=== PATIENT | male | born 1950 | race Caucasian/White ===

== ENCOUNTER → 2018-01-23 | Outpatient (CLI) | payer MEDICARE, OTHER ==
--- NOTE | 2018-01-23 10:33 | Diagnostic Imaging Report ---
INDICATION: History of renal cell carcinoma COMPARISON: 08/15/2016 FINDINGS: Two views of the chest were obtained. Heart size is normal. The pulmonary vessels appear unremarkable. There is no pneumothorax, mediastinal widening or pleural fluid. Lungs are clear. There are mild degenerative changes in the spine. IMPRESSION: No acute abnormality is demonstrated. No interval change from the prior study. Dictated by: Dictated on workstation # [id number]
== END ==
LOC: RAD 09:22
PROVIDERS: ATTEND Family Medicine
DX: Z85.528 Personal history of other malignant neoplasm of kidney (principal)
CPT/HCPCS: 71046

== ENCOUNTER 2018-03-11 09:55 | Outpatient (RCR) | payer MEDICARE, OTHER ==
[2018-03-09] MEDS: VANCOMYCIN 1 GM/NS 250 ML IVPB IV SCH ×2 (11:35)
[2018-03-09 11:37] VITALS: BP 167/89
[2018-03-10] MEDS: VANCOMYCIN 1 GM/NS 250 ML IVPB IV SCH ×2 (11:12)
[2018-03-10 12:24] VITALS: BP_SYST 147; BP_SYST 167; BP_DIAS 87; BP_DIAS 89
[~2018-03-11] VITALS: Ht 182.9 cm; Wt 108.0 kg
[2018-03-11] MEDS: VANCOMYCIN 1 GM/NS 250 ML IVPB IV SCH ×2 (10:01)
[2018-03-11 10:05] VITALS: BP 163/88
[2018-03-11 11:13] VITALS: BP 163/88
== END 2018-06-07 | disposition home or self-care (01) ==
LOC: SDC 09:55
PROVIDERS: ATTEND Nurse Practitioner Family
DX: L03.116 Cellulitis of left lower limb (principal)
CPT/HCPCS: 96365

== ENCOUNTER → 2018-04-16 | Outpatient (CLI) | payer MEDICARE, OTHER | LOC: WOUNDCARE 09:02 | PROVIDERS: ATTEND Surgery | DX: E11.621 Type 2 diabetes mellitus with foot ulcer (principal); L97.422 Non-pressure chronic ulcer of left heel and midfoot with fat layer exposed | CPT/HCPCS: 11042; 87070; 87075; 87077; 87186; 87205 ==

== ENCOUNTER → 2018-12-18 | Outpatient (CLI) | payer MEDICARE, OTHER ==
--- NOTE | 2018-12-18 12:15 | Diagnostic Imaging Report ---
EXAMINATION: PA and lateral chest at 1050 hours. INDICATION: Renal cell carcinoma. FINDINGS: The heart size is within normal limits and stable when compared to 01/23/2018. The lungs are clear. There is no evidence for failure, pneumonia, or for a pleural effusion. There is no sign of a parenchymal lung mass either. The mediastinum is not widened. The osseous structures are intact. There is a mild compression deformity of one of the lowermost thoracic vertebra. The seems similar to the prior exam. As noted previously, there is a surgical screw overlying the left humeral head. Surgical clips are also seen in the left upper quadrant. IMPRESSION: There is no evidence for an acute cardiopulmonary abnormality. There is no sign of a mass lesion either. Dictated by: Dictated on workstation # [id number]
== END ==
LOC: RAD 10:06
PROVIDERS: ATTEND Family Medicine
DX: C64.9 Malignant neoplasm of unspecified kidney, except renal pelvis (principal); R05 Cough
CPT/HCPCS: 71046

== ENCOUNTER → 2019-01-18 | Outpatient (CLI) | payer MEDICARE, OTHER | LOC: CARD 10:24 | PROVIDERS: ATTEND Family Medicine | DX: I10 Essential (primary) hypertension (principal); I34.0 Nonrheumatic mitral (valve) insufficiency | CPT/HCPCS: 93306 ==

== ENCOUNTER → 2020-09-10 | Outpatient (CLI) | payer MEDICARE, OTHER ==
--- NOTE | 2020-09-10 08:34 | Diagnostic Imaging Report ---
INDICATION: Renal cell carcinoma. Time of exam 8:03 AM Correlation is made with prior chest from 12/14/2018. The heart size is stable. The pulmonary vascularity is unremarkable. No infiltrates are detected. There is no effusion or pneumothorax. No pulmonary nodules or masses are identified. IMPRESSION: Stable chest. No acute features detected. Dictated by: Dictated on workstation # [id number]
== END ==
LOC: RAD 07:38
PROVIDERS: ATTEND Internal Medicine
DX: C64.9 Malignant neoplasm of unspecified kidney, except renal pelvis (principal)
CPT/HCPCS: 71045

== ENCOUNTER 2021-11-05 15:18 | Observation (INO) | payer MEDICARE, OTHER ==
[~2021-11-05] VITALS: Ht 182 cm; Wt 110.3 kg
[2021-11-05 16:12] LABS: BASOPHILS # (AUTO) 0.1 10^3/uL (0.0-0.1); BASOPHILS % (AUTO) 1 % (0-10); EOSINOPHILS # (AUTO) 0.2 10^3/uL (0.0-0.3); EOSINOPHILS % (AUTO) 2 % (0-10); HEMATOCRIT 44 % (40-54); HEMOGLOBIN 14.3 g/dL (13.3-17.7); LYMPHOCYTES % (AUTO) 18 % (12-44); MEAN CORPUSCULAR HEMOGLOBIN 29 pg (25-34); MEAN CORPUSCULAR HGB CONC 33 g/dL (32-36); MEAN CORPUSCULAR VOLUME 88 fL (80-99); MEAN PLATELET VOLUME 10.9 fL (9.0-12.2); MONOCYTES # (AUTO) 0.8 10^3/uL (0.0-1.0); MONOCYTES % (AUTO) 8 % (0-12); NEUTROPHILS # (AUTO) 7.9 10^3/uL (1.8-7.8); NEUTROPHILS % (AUTO) 71 % (42-75); PLATELET COUNT 214 10^3/uL (130-400); WHITE BLOOD COUNT 11.1 10^3/uL (4.3-11.0)
--- NOTE | 2021-11-05 16:12 | ED Cardiac General ---
History of Present Illness General Chief Complaint: Chest Pain Stated Complaint: CHEST HEAVINESS/BELCHING Nursing Triage Note: ARRIVED VIA AMB WITH COMPLAINTS OF CHEST PAIN AND BELCHING X3 DAYS. Source: patient Exam Limitations: no limitations History of Present Illness Date Seen by Provider: Nov 05, 2021 Time Seen by Provider: 15:58 Initial Comments Patient is a 71-year-old male who presents to the emergency department today with a chief complaint of chest pressure and belching a lot over the last 2-3 days. Patient states that the pressure on his chest has been intermittent over the last couple of days not necessarily brought on by activity or exertion. He states that he took some Tums for it today. Just before he got to the emergency room it seemed to have abated quite a bit. At its worst about a "4" and currently about a "1". He denies any recent illnesses such as fevers, chills, URI symptoms, cough or congestion. No diaphoresis or shortness of breath with the chest pressure. He states it does not radiate. It sits right on his chest. 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 He states he had a cardiac evaluation "in the 90s" before shoulder surgery. His primary care physician is Dr. Chan. He has a history of hypertension, diabetes and is on a statin. He is also on a PPI. Never been a smoker. No swelling in his legs or cramping in his calves. All other review of systems reviewed and negative except as stated Timing/Duration: 2-3 days Severity: mild Location: substernal, central Activities at Onset: none Prior CP/Workup: no prior chest pain, no prior cardiac workup NTG SL WOOL CARDER: No ASA po WOOL CARDER: No Associated Systoms: Denies Symptoms Allergies and Home Medications Allergies Coded Allergies: sulfamethoxazole (Unverified Adverse Reaction, Unknown, 03/09/18) trimethoprim (Unverified Adverse Reaction, Unknown, 03/09/18) Patient Home Medication List Home Medication List Reviewed: Yes Aspirin (Aspirin EC) 81 Mg Tablet., 81 MG PO HS, (Reported) Entered as Reported by: HEATH HINTON on 11/05/211913 Last Action: Continued Atorvastatin Calcium (Lipitor) 20 Mg Tablet, 20 MG PO HS, (Reported) Entered as Reported by: HEATH HINTON on 11/05/211913 Last Action: Continued Carvedilol (Coreg) 6.25 Mg Tablet, 6.25 MG PO BID Prescribed by: TIARA DICKSON on 11/06/21 1250 Hydrochlorothiazide (Hydrochlorothiazide) 25 Mg Tablet, 25 MG PO DAILY, (Reported) Entered as Reported by: HEATH HINTON on 11/05/211913 Last Action: Continued Insulin Aspart (Novolog Flexpen) 300 Units/3 Ml Solution, 0 SQ AC, (Reported) Entered as Reported by: HEATH HINTON on 11/05/211913 Last Action: Held Insulin Detemir (Levemir Flextouch) 100 Unit/1 Ml Insuln.pen, 112 UNIT SQ HS, (Reported) Entered as Reported by: HEATH HINTON on 11/05/211913 Last Action: Converted Lisinopril (Lisinopril) 40 Mg Tablet, 40 MG PO DAILY, (Reported) Entered as Reported by: HEATH HINTON on 11/05/211902 Last Action: Continued Metformin HCl (Metformin HCl ER) 1,000 Mg Spvbuev33s, 1,000 MG PO DAILY, (Reported) Entered as Reported by: HEATH HINTON on 11/05/211913 Last Action: Held Pantoprazole Sodium (Protonix) 40 Mg Tablet.dr, 40 MG PO BID Prescribed by: MIN CHAN on 11/06/21 1223 Prazosin HCl (Prazosin HCl) 1 Mg Capsule, 1 MG PO HS, (Reported) Entered as Reported by: HEATH HINTON on 11/05/211913 Last Action: Converted Sucralfate (Carafate) 1 Gm Tablet, 1 GM PO ACHS Prescribed by: MIN CHAN on 11/06/21 1223 Discontinued Medications Carvedilol (Carvedilol) 25 Mg Tablet, 25 MG PO BID, (Reported) Entered as Reported by: HEATH HINTON on 11/05/211913 Last Action: Converted Omeprazole (Omeprazole) 20 Mg Capsule.dr, 20 MG PO HS, (Reported) Entered as Reported by: HEATH HINTON on 11/05/211913 Last Action: Continued Review of Systems Review of Systems Constitutional: see HPI Respiratory: No Symptoms Reported Cardiovascular: Chest Pain Gastrointestinal: Other ("Belching") Genitourinary: No Symptoms Reported Musculoskeletal: no symptoms reported Skin: no symptoms reported Psychiatric/Neurological: Anxiety (Mild) All Other Systems Reviewed Negative Unless Noted: Yes Past Hakigzb-Ropsim-Zyvdyu Hx Patient Social History Smoking Status: Never a Smoker Substance use?: No Alcohol Use?: No Immunizations Up To Date COVID19 Vaccine Soap Grinder: MODERNA Physical Exam Vital Signs Vital Signs - First Documented 11/05/21 15:30 Temp 36.3 Pulse 55 Resp 16 B/P (MAP) 188/82 (117) Pulse Ox 97 O2 Delivery Room Air Capillary Refill : Less Than 3 Seconds Height, Weight, BMI Height: 6'0.00" Weight: 238lbs. 0.0oz. 107.856965jc; 32.00 BMI Method: General Appearance: No Apparent Distress, WD/WN HEENT: PERRL/EOMI Neck: Normal Inspection Respiratory: Lungs Clear, Normal Breath Sounds, No Accessory Muscle Use, No Respiratory Distress Cardiovascular: Regular Rate, Rhythm (60's), Normal Peripheral Pulses Gastrointestinal: Normal Bowel Sounds, Non Tender, Soft Extremity: Normal Capillary Refill, Normal Inspection, Normal Range of Motion, Non Tender, No Calf Tenderness, No Pedal Edema Neurologic/Psychiatric: Alert, Oriented x3, No Motor/Sensory Deficits, Normal Mood/Affect, pharmacy clerk II-XII Norm as Tested Skin: Normal Color, Warm/Dry Progress/Results/Core Measures Results/Orders Lab Results Laboratory Tests Test 11/05/21 15:37 Range/Units White Blood Count 11.1 H 4.3-11.0 10^3/uL Red Blood Count 4.94 4.30-5.52 10^6/uL Hemoglobin 14.3 13.3-17.7 g/dL Hematocrit 44 40-54 % Mean Corpuscular Volume 88 80-99 fL Mean Corpuscular Hemoglobin 29 25-34 pg Mean Corpuscular Hemoglobin Concent 33 32-36 g/dL Red Cell Distribution Width 13.3 10.0-14.5 % Platelet Count 214 130-400 10^3/uL Mean Platelet Volume 10.9 9.0-12.2 fL Immature Granulocyte % (Auto) 1 % Neutrophils (%) (Auto) 71 42-75 % Lymphocytes (%) (Auto) 18 12-44 % Monocytes (%) (Auto) 8 0-12 % Eosinophils (%) (Auto) 2 0-10 % Basophils (%) (Auto) 1 0-10 % Neutrophils # (Auto) 7.9 H 1.8-7.8 10^3/uL Lymphocytes # (Auto) 2.0 1.0-4.0 10^3/uL Monocytes # (Auto) 0.8 0.0-1.0 10^3/uL Eosinophils # (Auto) 0.2 0.0-0.3 10^3/uL Basophils # (Auto) 0.1 0.0-0.1 10^3/uL Immature Granulocyte # (Auto) 0.1 0.0-0.1 10^3/uL Prothrombin Time 13.0 12.2-14.7 SEC INR Comment 0.9 0.8-1.4 Activated Partial Thromboplast Time 34 24-35 SEC Sodium Level 136 135-145 MMOL/L Potassium Level 3.7 3.6-5.0 MMOL/L Chloride Level 102 98-107 MMOL/L Carbon Dioxide Level 27 21-32 MMOL/L Anion Gap 7 5-14 MMOL/L Blood Urea Nitrogen 17 7-18 MG/DL Creatinine 0.97 0.60-1.30 MG/DL Estimat Glomerular Filtration Rate 77 BUN/Creatinine Ratio 18 Glucose Level 204 H 70-105 MG/DL Calcium Level 10.1 8.5-10.1 MG/DL Corrected Calcium 10.1 8.5-10.1 MG/DL Total Bilirubin 0.6 0.1-1.0 MG/DL Aspartate Amino Transf (AST/SGOT) 20 5-34 U/L Alanine Aminotransferase (ALT/SGPT) 30 0-55 U/L Alkaline Phosphatase 77 40-136 U/L Total Creatine Kinase 176 30-200 U/L Creatine Kinase MB 4.7 <6.6 NG/ML Troponin I < 0.028 <0.028 NG/ML Total Protein 7.1 6.4-8.2 GM/DL Albumin 4.0 3.2-4.5 GM/DL My Orders Orders - TAHMINA ARNOLD MD Ed Iv/Invasive Line Start (11/05/21 16:06) Cbc With Automated Diff (11/05/21 16:06) Comprehensive Metabolic Panel (11/05/21 16:06) Protime With Inr (11/05/21 16:06) Partial Thromboplastin Time (11/05/21 16:06) Ekg Tracing (11/05/21 16:06) Chest 1 View, Ap/Pa Only (11/05/21 16:06) Troponin I [place] (11/05/21 16:06) Creatine Kinase (11/05/21 16:06) Creatine Kinase Mb (11/05/21 16:06) Aspirin Chewable Tablet (Baby Aspirin Ch (11/06/21 09:00) Aspirin Chewable Tablet (Baby Aspirin Ch (11/05/21 16:26) Ed Admission (Communication) (11/05/21 17:21) Enoxaparin Injection (Lovenox Injection) (11/05/21 17:30) Vital Signs/I&O 11/05/21 15:30 Temp 36.3 Pulse 55 Resp 16 B/P (MAP) 188/82 (117) Pulse Ox 97 O2 Delivery Room Air Blood Pressure Mean: 117 Admisison Planning May Need Admission (Planning): 17:20 Progress Progress Note : Time: 17:20 Progress Note Discussed with Dr. CHAN, recommends observation admission with serial cardiac enzymes and consultation with Dr. Dickson. Dr. Dickson request Lovenox weight-based twice daily and baby aspirin daily. Initial ECG Impression Date: Nov 05, 2021 Initial ECG Impression Time: 15:40 Initial ECG Rate: 54 Initial ECG Rhythm: Normal Sinus Initial ECG Intervals SD interval 155 QRS 109 QTc 388 Initial ECG Impression: Nonspecific Changes Comment Patient has nonspecific ST-T wave changes over V5 and V6 there is quite a bit of artifact on the baseline. No ST elevation or depression, no ectopy Diagnostic Imaging Diagonstic Imaging: Xray Plain Films/CT/US/NM/MRI: chest Comments [facility] [place], [place] NAME: CLOTILDE GUTIÉRREZ [facility] REC#: [id number] PT STATUS: REG ER : 1950 PHYSICIAN: TAHMINA ARNOLD MD ADMIT DATE: 11/05/21/ER Signed Date of Exam:11/05/21 CHEST 1 VIEW, AP/PA ONLY INDICATION: Chest pressure/pain and vomiting x3 days. History of renal cell carcinoma. TECHNIQUE: Single view chest 4:25 PM. CORRELATION STUDY: 09/10/2020 FINDINGS: Heart size is borderline enlarged. Vasculature overall is within normal limits. The lungs are clear with no consolidating infiltrate. There is no significant effusion or pneumothorax. IMPRESSION: 1. Borderline cardiac enlargement. No evidence for failure. Dictated by: Dictated on workstation # [id number] Dict: 11/05/21 1643 Trans: 11/05/21 164 DO [id number] Interpreted by: NADEGE SIMMONS DO Electronically signed by: NADEGE SIMMONS DO 11/05/21 1645 Departure Communication (Admissions) Time/Spoke to Admitting Phy: 17:[address] Chan wants admitted obs Time/Spoke to Consulting Phy: 17:[address] Dickson; aspirin and lovenox Impression Primary Impression: Chest pain Qualified Codes: R07.9 - Chest pain, unspecified Additional Impressions: Diabetes mellitus Qualified Codes: E11.9 - Type 2 diabetes mellitus without complications; 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 Referrals: MIN CHAN DO (PCP/Family) Primary Care Physician Scripts Carvedilol (Coreg) 6.25 Mg Tablet 6.25 MG PO BID, #60 TAB 3 Refills Prov: TIARA DICKSON MD 11/06/21 Sucralfate (Carafate) 1 Gm Tablet 1 GM PO ACHS, #120 TAB Prov: MIN CHAN DO 11/06/21 Pantoprazole Sodium (Protonix) 40 Mg Tablet. 40 MG PO BID, #60 TAB Prov: MIN CHAN DO 11/06/21 TAHMINA ARNOLD MD Nov 05, 2021 16:12
[2021-11-05 16:24] LABS: CHLORIDE 102 MMOL/L (98-107); INR 0.9 (0.8-1.4); POTASSIUM 3.7 MMOL/L (3.6-5.0); SODIUM 136 MMOL/L (135-145)
[2021-11-05 16:25] LABS: CALCIUM 10.1 MG/DL (8.5-10.1)
[2021-11-05] MEDS ORDERED: ASPIRIN 81 MG CHEW (CHILDREN'S ASA) ONE (16:26)
[2021-11-05 16:27] LABS: GLUCOSE 204 MG/DL (70-105); TOTAL PROTEIN 7.1 GM/DL (6.4-8.2)
[2021-11-05 16:28] LABS: BILIRUBIN,TOTAL 0.6 MG/DL (0.1-1.0); CARBON DIOXIDE 27 MMOL/L (21-32)
[2021-11-05 16:30] LABS: ALKALINE PHOSPHATASE 77 U/L (40-136); CREATININE SERUM 0.97 MG/DL (0.60-1.30); GFR ESTIMATED 77
[2021-11-05 16:31] LABS: BUN/CREATININE RATIO 18
[2021-11-05 16:33] LABS: ALANINE AMINOTRANSFERASE 30 U/L (0-55); CREATINE KINASE 176 U/L (30-200)
[2021-11-05 16:39] LABS: CREATINE KINASE MB 4.7 NG/ML (<6.6)
--- NOTE | 2021-11-05 16:46 | Diagnostic Imaging Report ---
INDICATION: Chest pressure/pain and vomiting x3 days. History of renal cell carcinoma. TECHNIQUE: Single view chest 4:25 PM. CORRELATION STUDY: 09/10/2020 FINDINGS: Heart size is borderline enlarged. Vasculature overall is within normal limits. The lungs are clear with no consolidating infiltrate. There is no significant effusion or pneumothorax. IMPRESSION: 1. Borderline cardiac enlargement. No evidence for failure. Dictated by: Dictated on workstation # [id number]
[2021-11-05] MEDS ORDERED: ENOXAPARIN 100 MG/1 ML (LOVENOX) SYR SC ONE (17:30)
[2021-11-05] MEDS ORDERED: ACETAMINOPHEN 325 MG TABLET PO PRN (18:15)
[2021-11-05] MEDS ORDERED: morphine INJ 4 MG/ML 1 ML (VIAL/SYRINGE) IV PRN (18:15)
[2021-11-05] MEDS ORDERED: ONDANSETRON 4 MG/2 ML (SDV) Z0FRAN IV PRN (18:15)
[2021-11-05] MEDS ORDERED: diphenhydrAMINE 25 MG TAB (BENADRYL) PO PRN (18:15)
[2021-11-05] MEDS ORDERED: NITROGLYCERIN 0.4 MG SL TABS BTL 25'S SL PRN (18:15)
[2021-11-05] MEDS ORDERED: diphenhydrAMINE 50 MG/ML INJ (BENADRYL) IVP PRN (18:15)
[2021-11-05] MEDS ORDERED: MELATONIN 3 MG TABLET PO PRN (18:15)
[2021-11-05] MEDS ORDERED: NALOXONE 0.4 MG/ML 1 ML (NARCAN) VIAL IV PRN (18:15)
[2021-11-05] MEDS ORDERED: ONDANSETRON 4 MG (ZOFRAN) ORAL DISSOLVE TAB PO PRN (18:15)
[2021-11-05] MEDS ORDERED: CALCIUM CARBONATE 500 MG (TUMS) TAB.CHEW PO PRN (18:15)
[2021-11-05] MEDS ORDERED: PATIENT MAY USE OWN MEDS, ALL PO SCH (18:15)
[2021-11-05] MEDS ORDERED: ANTACID SUSP 30 ML UDC (MYLANTA) PO PRN (18:15)
[2021-11-05] MEDS ORDERED: polyethylene glycoL POWDER 17 GM (MIRALAX) PACK PO PRN (18:15)
[2021-11-05] MEDS ORDERED: MILK OF MAGNESIA 400 MG/5 ML 30 ML UDC PO PRN (18:15)
[2021-11-05] MEDS ORDERED: BISACODYL 10 MG SUPP (DULCOLAX) PR PRN (18:15)
[2021-11-05] MEDS ORDERED: LACTULOSE SYRUP 10GM/15ML (ENULOSE) 30ML UDC PO PRN (18:15)
[2021-11-05] MEDS ORDERED: LISI40TA9 PO (19:03)
[2021-11-05] MEDS ORDERED: ATOR20TA49 PO (19:14)
[2021-11-05] MEDS ORDERED: INSU100I14 SQ (19:14)
[2021-11-05] MEDS ORDERED: ASPI-1238 PO (19:14)
[2021-11-05] MEDS ORDERED: CARV25TA PO (19:14)
[2021-11-05] MEDS ORDERED: METF-846 PO (19:14)
[2021-11-05] MEDS ORDERED: OMEP20CA18 PO (19:14)
[2021-11-05] MEDS ORDERED: HYDR25TA4 PO (19:14)
[2021-11-05] MEDS ORDERED: INSU100I29 SQ (19:14)
[2021-11-05] MEDS ORDERED: PRAZ1CAP2 PO (19:14)
[2021-11-05 19:24] VITALS: BP 192/92
[2021-11-05 19:35] VITALS: BP 188/82
[2021-11-05] MEDS ORDERED: NITROGLYCERIN 2% OINT 1 GM UNIT DOSE PACKET TOP PRN (20:00)
[2021-11-05] MEDS ORDERED: hydrALAZINE (APRESOLINE) 25 MG TAB PO PRN (20:00)
[2021-11-05] MEDS ORDERED: ASPIRIN E.C. 81 MG (ECOTRIN) TAB PO SCH (21:00)
[2021-11-05] MEDS ORDERED: amLODIPine 5 MG (NORVASC) TAB PO ONE (21:15)
[2021-11-05] MEDS ORDERED: PANTOPRAZOLE 20 MG TABLET (PROTONIX) PO SCH (21:30)
[2021-11-05] MEDS: DOCUSATE SODIUM 100 MG (COLACE) CAP PO SCH (22:00)
[2021-11-05] MEDS: inSUlin ASPART (NovoLOG) 1 UNIT/0.01 ML (CHARGE PER UNIT) SC SCH (22:01)
[2021-11-05] MEDS: SENNOSIDES 8.6 MG (SENOKOT) TAB PO SCH (22:01)
[2021-11-06] VITALS: BP 145/80
[2021-11-06 03:34] VITALS: BP 143/80
[2021-11-06] MEDS ORDERED: ENOXAPARIN 100 MG/1 ML (LOVENOX) SYR SC SCH (06:00)
[2021-11-06 06:16] LABS: BASOPHILS # (AUTO) 0.1 10^3/uL (0.0-0.1); BASOPHILS % (AUTO) 1 % (0-10); EOSINOPHILS # (AUTO) 0.3 10^3/uL (0.0-0.3); EOSINOPHILS % (AUTO) 3 % (0-10); HEMATOCRIT 43 % (40-54); HEMOGLOBIN 13.9 g/dL (13.3-17.7); LYMPHOCYTES # (AUTO) 1.9 10^3/uL (1.0-4.0); LYMPHOCYTES % (AUTO) 23 % (12-44); MEAN CORPUSCULAR HEMOGLOBIN 29 pg (25-34); MEAN CORPUSCULAR HGB CONC 32 g/dL (32-36); MEAN CORPUSCULAR VOLUME 89 fL (80-99); MONOCYTES # (AUTO) 0.8 10^3/uL (0.0-1.0); MONOCYTES % (AUTO) 9 % (0-12); NEUTROPHILS # (AUTO) 5.4 10^3/uL (1.8-7.8); NEUTROPHILS % (AUTO) 64 % (42-75); PLATELET COUNT 190 10^3/uL (130-400); WHITE BLOOD COUNT 8.4 10^3/uL (4.3-11.0)
[2021-11-06] MEDS: inSUlin ASPART (NovoLOG) 1 UNIT/0.01 ML (CHARGE PER UNIT) SC SCH ×2 (06:33→10:04)
[2021-11-06 06:59] LABS: TRIGLYCERIDES 148 MG/DL (<150); VLDL CHOLESTEROL 30 MG/DL (5-40)
[2021-11-06 07:04] LABS: CHOLESTEROL 134 MG/DL (< 200)
[2021-11-06 07:05] LABS: HDL CHOLESTEROL 35 MG/DL (40-60)
[2021-11-06 07:31] VITALS: BP 167/85
[2021-11-06 07:49] LABS: ALBUMIN 3.8 GM/DL (3.2-4.5); BILIRUBIN,TOTAL 0.4 MG/DL (0.1-1.0); CALCIUM 9.5 MG/DL (8.5-10.1); CREATININE SERUM 1.03 MG/DL (0.60-1.30); POTASSIUM 3.5 MMOL/L (3.6-5.0); TOTAL PROTEIN 6.6 GM/DL (6.4-8.2)
[2021-11-06] MEDS ORDERED: lisINopril 40 MG (PRINIVIL) TABLET PO SCH (09:00)
[2021-11-06] MEDS ORDERED: ASPIRIN 81 MG CHEW (CHILDREN'S ASA) PO SCH (09:00)
[2021-11-06] MEDS ORDERED: ASPIRIN E.C. 81 MG (ECOTRIN) TAB PO SCH (09:00)
[2021-11-06] MEDS: SENNOSIDES 8.6 MG (SENOKOT) TAB PO SCH (09:29)
[2021-11-06] MEDS: DOCUSATE SODIUM 100 MG (COLACE) CAP PO SCH (09:29)
--- NOTE | 2021-11-06 09:36 | History & Physical ---
History of Present Illness HPI/Chief Complaint Chief complaint: Chest pressure with belching History of present illness: This is a 71-year-old white male clinic patient of [employer] who has a past medical history of diabetes insulin-dependent managed by endocrinology, hypertension, hyperlipidemia who presents to the ER with chest pressure and belching. He does take omeprazole. Troponins have all been negative. Patient hasn't had a cardiac work-up for a long time. Dr. Dickson consulted. Echocardiogram completed. Outpatient stress test will be planned. Dr. DAO consulted due to suspicion for GERD versus gallbladder disease. Ultrasound of the abdomen will be ordered as outpatient. Source: patient, family Exam Limitations: no limitations Date Seen 11/06/21 Time Seen by a Provider: 12:00 Attending Physician Darline Wolfe DO PCP Darline Wolfe DO Referring Physician Date of Admission Nov 05, 2021 at 17:24 Home Medications & Allergies Home Medications Reviewed patient Home Medication Reconciliation performed by pharmacy medication reconciliations sheet metal technician and/or nursing. Patients Allergies have been reviewed. Allergies Allergies Coded Allergies sulfamethoxazole (Unverified Adverse Reaction, Unknown, 03/09/18) trimethoprim (Unverified Adverse Reaction, Unknown, 03/09/18) Past Qppqbkg-Vemsrq-Wzureq Hx Past Med/Social Hx: Reviewed Nursing Past Med/Soc Hx, Reviewed and Corrections made Patient Social History Marrital Status: Employed/Student: retired Alcohol Use: Denies Use Smoking Status: Never a Smoker Recent Foreign Travel: No Contact w/other who traveled: No Immunizations Up To Date Date of Influenza Vaccine: Aug 05, 2021 Past Medical History Cardiac: High Cholesterol, Hypertension Gastrointestinal: Gastroesophageal Reflux Endocrine: Diabetes, Insulin dep Review of Systems Constitutional: see HPI EENTM: no symptoms reported Respiratory: dyspnea on exertion Cardiovascular: chest pain Gastrointestinal: no symptoms reported Genitourinary: no symptoms reported Musculoskeletal: no symptoms reported Skin: no symptoms reported Psychiatric/Neurological: No Symptoms Reported All Other Systems Reviewed Negative Unless Noted: Yes Physical Exam Physical Exam Vital Signs Vital Signs - First Documented 11/05/21 11/05/21 15:30 19:35 Temp 36.3 Pulse 55 Resp 16 B/P (MAP) 188/82 (117) Pulse Ox 97 O2 Delivery Room Air FiO2 21 Capillary Refill : Less Than 3 Seconds Height, Weight, BMI Height: 6'0.00" Weight: 238lbs. 0.0oz. 107.925237xs; 32.30 BMI Method: General Appearance: No Apparent Distress, WD/WN, Chronically ill, Obese HEENT: PERRL/EOMI, Normal ENT Inspection, Pharynx Normal Neck: Full Range of Motion, Normal Inspection Respiratory: Lungs Clear, Normal Breath Sounds, No Accessory Muscle Use, No Respiratory Distress Cardiovascular: Regular Rate, Rhythm (60's), Normal Peripheral Pulses Gastrointestinal: Normal Bowel Sounds, Non Tender, Soft Extremity: Normal Capillary Refill, Normal Inspection, Normal Range of Motion, Non Tender, No Calf Tenderness, No Pedal Edema Neurologic/Psychiatric: Alert, Oriented x3, No Motor/Sensory Deficits, Normal Mood/Affect, e learning manager II-XII Norm as Tested Skin: Normal Color, Warm/Dry Results Results/Procedures Labs Laboratory Tests 11/05/21 15:37 11/06/21 00:24 11/06/21 05:33 Patient resulted labs reviewed. Assessment/Plan Admission Diagnosis Assessment: Chest pain Belching History of GERD Diabetes mellitus insulin requiring endocrinology manages Hypertension Hyperlipidemia Obesity BMI 33 Plan: Dr. Dickson consult Echo Stress test as an outpatient Ultrasound of abdomen as an outpatient PPI twice daily and [place] DAO consult in case needs EGD Admission Status: Observation Diagnosis/Problems Diagnosis/Problems (1) Chest pain Qualifiers: Chest pain type: unspecified Qualified Codes: R07.9 - Chest pain, unspecified (2) Gall bladder disease (3) Hypertension Status: Acute Qualifiers: Hypertension type: primary hypertension Qualified Codes: I10 - Essential (primary) hypertension (4) Diabetes mellitus Status: Acute Qualifiers: Diabetes mellitus type: type 2 Diabetes mellitus half-way insulin use: with half-way use Diabetes mellitus complication status: without complication Qualified Codes: E11.9 - Type 2 diabetes mellitus without complications; 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
[2021-11-06 11:19] VITALS: BP 173/87
[2021-11-06] MEDS ORDERED: SUCR1TAB36 PO (12:23)
[2021-11-06] MEDS ORDERED: PANT40TA2 PO (12:23)
--- NOTE | 2021-11-06 12:48 | Consultation-Cardiology ---
HPI-Cardiology Cardiology Consultation Date of Consultation 11/06/21 Date of Admission Time Seen by Provider: 12:45 Indication: Chest pain HPI 71 years old gentleman with multiple risk factors for coronary artery disease but no known previous cardiac history, has been having recurrent chest pain on exertion feeling heaviness in his chest with exertion reporting that he improve after belching. Came into the emergency room and monitored, cardiac enzymes has been negative, EKG did not show any acute changes, denied any active chest pain at this time. Home Medications & Allergies Allergies: Coded Allergies: sulfamethoxazole (Unverified Adverse Reaction, Unknown, 03/09/18) trimethoprim (Unverified Adverse Reaction, Unknown, 03/09/18) Home Medication List Reviewed: Yes GCM-Sgkizt-Uvfbyx Hx Patient Social History Marital Status: Employed/Student: retired Smoking Status: Never a Smoker Have you traveled recently?: No Alcohol Use?: No Immunizations Up To Date Date of Influenza Vaccine: Aug 05, 2021 Past Medical History Discussed below Family Medical History Family Medical Hx Mother has history of coronary artery disease Review of Systems-General Review of Systems Constitutional: see HPI EENTM: see HPI, no symptoms reported Respiratory: see HPI; No cough; dyspnea on exertion; No hemoptysis, No orthopnea, No phlegm, No short of breath, No stridor, No wheezing, No other Cardiovascular: see HPI, chest pain; No edema, No Hx of Intervention, No palpitations, No syncope, No vascular heart diseas, No other Gastrointestinal: no symptoms reported, see HPI Genitourinary: no symptoms reported, see HPI Musculoskeletal: no symptoms reported Skin: no symptoms reported Psychiatric/Neurological: Anxiety (Mild) All Other Systems Reviewed Negative Unless Noted: Yes Reviewed Test Results Reviewed Test Results Lab Laboratory Tests Test 11/05/21 15:37 11/05/21 19:43 11/06/21 00:24 11/06/21 05:33 Range/Units White Blood Count 11.1 H 8.4 4.3-11.0 10^3/uL Red Blood Count 4.94 4.86 4.30-5.52 10^6/uL Hemoglobin 14.3 13.9 13.3-17.7 g/dL Hematocrit 44 43 40-54 % Mean Corpuscular Volume 88 89 80-99 fL Mean Corpuscular Hemoglobin 29 29 25-34 pg Mean Corpuscular Hemoglobin Concent 33 32 32-36 g/dL Red Cell Distribution Width 13.3 13.5 10.0-14.5 % Platelet Count 214 190 130-400 10^3/uL Mean Platelet Volume 10.9 11.0 9.0-12.2 fL Immature Granulocyte % (Auto) 1 1 % Neutrophils (%) (Auto) 71 64 42-75 % Lymphocytes (%) (Auto) 18 23 12-44 % Monocytes (%) (Auto) 8 9 0-12 % Eosinophils (%) (Auto) 2 3 0-10 % Basophils (%) (Auto) 1 1 0-10 % Neutrophils # (Auto) 7.9 H 5.4 1.8-7.8 10^3/uL Lymphocytes # (Auto) 2.0 1.9 1.0-4.0 10^3/uL Monocytes # (Auto) 0.8 0.8 0.0-1.0 10^3/uL Eosinophils # (Auto) 0.2 0.3 0.0-0.3 10^3/uL Basophils # (Auto) 0.1 0.1 0.0-0.1 10^3/uL Immature Granulocyte # (Auto) 0.1 0.1 0.0-0.1 10^3/uL Prothrombin Time 13.0 12.2-14.7 SEC INR Comment 0.9 0.8-1.4 Activated Partial Thromboplast Time 34 24-35 SEC Sodium Level 136 138 135-145 MMOL/L Potassium Level 3.7 3.5 L 3.6-5.0 MMOL/L Chloride Level 102 103 98-107 MMOL/L Carbon Dioxide Level 27 19 L 21-32 MMOL/L Anion Gap 7 16 H 5-14 MMOL/L Blood Urea Nitrogen 17 18 7-18 MG/DL Creatinine 0.97 1.03 0.60-1.30 MG/DL Estimat Glomerular Filtration Rate 77 71 BUN/Creatinine Ratio 18 17 Glucose Level 204 H 171 H 70-105 MG/DL Calcium Level 10.1 9.5 8.5-10.1 MG/DL Corrected Calcium 10.1 9.7 8.5-10.1 MG/DL Total Bilirubin 0.6 0.4 0.1-1.0 MG/DL Aspartate Amino Transf (AST/SGOT) 20 22 5-34 U/L Alanine Aminotransferase (ALT/SGPT) 30 30 0-55 U/L Alkaline Phosphatase 77 76 40-136 U/L Total Creatine Kinase 176 30-200 U/L Creatine Kinase MB 4.7 <6.6 NG/ML Troponin I < 0.028 < 0.028 < 0.028 <0.028 NG/ML Total Protein 7.1 6.6 6.4-8.2 GM/DL Albumin 4.0 3.8 3.2-4.5 GM/DL Glucometer 129 H 70-110 MG/DL Triglycerides Level 148 <150 MG/DL Cholesterol Level 134 < 200 MG/DL LDL Cholesterol Direct 80 1-129 MG/DL VLDL Cholesterol 30 5-40 MG/DL HDL Cholesterol 35 L 40-60 MG/DL Test 11/06/21 06:31 11/06/21 10:00 11/06/21 11:05 Range/Units Glucometer 95 83 70-110 MG/DL Troponin I < 0.028 <0.028 NG/ML Physical Exam Physical Exam Vital Signs Vital Signs - First Documented 11/05/21 11/05/21 15:30 19:35 Temp 36.3 Pulse 55 Resp 16 B/P (MAP) 188/82 (117) Pulse Ox 97 O2 Delivery Room Air FiO2 21 Capillary Refill : Less Than 3 Seconds Height, Weight, BMI Height: 6'0.00" Weight: 238lbs. 0.0oz. 107.055783hl; 32.30 BMI Method: General Appearance: No Apparent Distress, WD/WN HEENT: PERRL/EOMI Neck: Normal Inspection Respiratory: Lungs Clear, Normal Breath Sounds, No Accessory Muscle Use, No Respiratory Distress Cardiovascular: Regular Rate, Rhythm (60's), Normal Peripheral Pulses Gastrointestinal: Normal Bowel Sounds, Non Tender, Soft Extremity: Normal Capillary Refill, Normal Inspection, Normal Range of Motion, Non Tender, No Calf Tenderness, No Pedal Edema Neurologic/Psychiatric: Alert, Oriented x3, No Motor/Sensory Deficits, Normal Mood/Affect, managing manager II-XII Norm as Tested Skin: Normal Color, Warm/Dry A/P-Cardiology Admission Diagnosis Chest pain Hypertension Hyperlipidemia Diabetes mellitus Sinus bradycardia Assessment/Plan Chest pain nonspecific etiology, atypical in presentation, patient has multiple risk factors for coronary artery disease, we discussed the management plan recommended evaluating stress test as an outpatient. Hypertension, I will decrease carvedilol dose to 6.25 mg twice daily due to severe bradycardia Bradycardia, heart rate in the 40s. I instructed him to cut down Coreg dose and monitor tolerance and response and continue all other medication Hyperlipidemia, continue on statin and monitor lipids Diabetes mellitus, followed and managed by primary care physician Obesity, BMI 33. Okay for discharge and follow-up as an outpatient Clinical Quality Measures AMI/AHF: ASA po Prior to arrival: TIARA Ernst MD Nov 06, 2021 12:48
[2021-11-06] MEDS ORDERED: CARV6.25 PO (12:50)
--- NOTE | 2021-11-06 12:57 | Discharge Summary ---
Diagnosis/Chief Complaint Date of Admission Nov 05, 2021 at 17:24 Date of Discharge Discharge Date: Nov 06, 2021 Discharge Diagnosis Chest pain w/o evidence of ACS Belching suspicious for GERD and/or GB disease Discharge Summary Discharge Physical Examination Allergies: Coded Allergies: sulfamethoxazole (Unverified Adverse Reaction, Unknown, 03/09/18) trimethoprim (Unverified Adverse Reaction, Unknown, 03/09/18) Vitals & I&Os Vital Signs Date Time Temp Pulse Resp B/P (MAP) Pulse Ox O2 Delivery O2 Flow Rate FiO2 11/06/21 14:54 35.4 67 19 173/87 96 Room Air 11/05/21 19:35 21 Hospital Course Was the Problem List Reviewed?: Yes Brief course after admitted and troponin negative prompting Dr Dickson consult ECHO completed and Dr Thompson consulted for EGD outpatient and abd usg outpatient and est outpatient arranged Labs (last 24 hrs) Laboratory Tests 11/05/21 15:37: White Blood Count 11.1H, Red Blood Count 4.94, Hemoglobin 14.3, Hematocrit 44, Mean Corpuscular Volume 88, Mean Corpuscular Hemoglobin 29, Mean Corpuscular Hemoglobin Concent 33, Red Cell Distribution Width 13.3, Platelet Count 214, Mean Platelet Volume 10.9, Immature Granulocyte % (Auto) 1, Neutrophils (%) (Auto) 71, Lymphocytes (%) (Auto) 18, Monocytes (%) (Auto) 8, Eosinophils (%) (Auto) 2, Basophils (%) (Auto) 1, Neutrophils # (Auto) 7.9H, Lymphocytes # (Auto) 2.0, Monocytes # (Auto) 0.8, Eosinophils # (Auto) 0.2, Basophils # (Auto) 0.1, Immature Granulocyte # (Auto) 0.1, Prothrombin Time 13.0, INR Comment 0.9, Activated Partial Thromboplast Time 34, Sodium Level 136, Potassium Level 3.7, Chloride Level 102, Carbon Dioxide Level 27, Anion Gap 7, Blood Urea Nitrogen 17, Creatinine 0.97, Estimat Glomerular Filtration Rate 77, BUN/Creatinine Ratio 18, Glucose Level 204H, Calcium Level 10.1, Corrected Calcium 10.1, Total Bilirubin 0.6, Aspartate Amino Transf (AST/SGOT) 20, Alanine Aminotransferase (ALT/SGPT) 30, Alkaline Phosphatase 77, Total Creatine Kinase 176, Creatine Kinase MB 4.7, Troponin I < 0.028, Total Protein 7.1, Albumin 4.0 11/05/21 19:43: Glucometer 129H 11/06/21 00:24: Sodium Level 138, Potassium Level 3.5L, Chloride Level 103, Carbon Dioxide Level 19L, Anion Gap 16H, Blood Urea Nitrogen 18, Creatinine 1.03, Estimat Glomerular Filtration Rate 71, BUN/Creatinine Ratio 17, Glucose Level 171H, Calcium Level 9.5, Corrected Calcium 9.7, Total Bilirubin 0.4, Aspartate Amino Transf (AST/SGOT) 22, Alanine Aminotransferase (ALT/SGPT) 30, Alkaline Phosphatase 76, Troponin I < 0.028, Total Protein 6.6, Albumin 3.8 11/06/21 05:33: White Blood Count 8.4, Red Blood Count 4.86, Hemoglobin 13.9, Hematocrit 43, Mean Corpuscular Volume 89, Mean Corpuscular Hemoglobin 29, Mean Corpuscular Hemoglobin Concent 32, Red Cell Distribution Width 13.5, Platelet Count 190, Mean Platelet Volume 11.0, Immature Granulocyte % (Auto) 1, Neutrophils (%) (Auto) 64, Lymphocytes (%) (Auto) 23, Monocytes (%) (Auto) 9, Eosinophils (%) (Auto) 3, Basophils (%) (Auto) 1, Neutrophils # (Auto) 5.4, Lymphocytes # (Auto) 1.9, Monocytes # (Auto) 0.8, Eosinophils # (Auto) 0.3, Basophils # (Auto) 0.1, Immature Granulocyte # (Auto) 0.1, Troponin I < 0.028, Triglycerides Level 148, Cholesterol Level 134, LDL Cholesterol Direct 80, VLDL Cholesterol 30, HDL Cholesterol 35L 11/06/21 06:31: Glucometer 95 11/06/21 10:00: Glucometer 83 11/06/21 11:05: Troponin I < 0.028 Pending Labs Laboratory Tests 11/05/21 15:37: White Blood Count 11.1, Red Blood Count 4.94, Hemoglobin 14.3, Hematocrit 44, Mean Corpuscular Volume 88, Mean Corpuscular Hemoglobin 29, Mean Corpuscular Hemoglobin Concent 33, Red Cell Distribution Width 13.3, Platelet Count 214, Mean Platelet Volume 10.9, Immature Granulocyte % (Auto) 1, Neutrophils (%) (Auto) 71, Lymphocytes (%) (Auto) 18, Monocytes (%) (Auto) 8, Eosinophils (%) (Auto) 2, Basophils (%) (Auto) 1, Neutrophils # (Auto) 7.9, Lymphocytes # (Auto) 2.0, Monocytes # (Auto) 0.8, Eosinophils # (Auto) 0.2, Basophils # (Auto) 0.1, Immature Granulocyte # (Auto) 0.1, Prothrombin Time 13.0, INR Comment 0.9, Activated Partial Thromboplast Time 34, Sodium Level 136, Potassium Level 3.7, C hloride Level 102, Carbon Dioxide Level 27, Anion Gap 7, Blood Urea Nitrogen 17, Creatinine 0.97, Estimat Glomerular Filtration Rate 77, BUN/Creatinine Ratio 18, Glucose Level 204, Calcium Level 10.1, Corrected Calcium 10.1, Total Bilirubin 0.6, Aspartate Amino Transf (AST/SGOT) 20, Alanine Aminotransferase (ALT/SGPT) 30, Alkaline Phosphatase 77, Total Creatine Kinase 176, Creatine Kinase MB 4.7, Troponin I < 0.028, Total Protein 7.1, Albumin 4.0 11/05/21 19:43: Glucometer 129 11/06/21 00:24: Sodium Level 138, Potassium Level 3.5, Chloride Level 103, Carbon Dioxide Level 19, Anion Gap 16, Blood Urea Nitrogen 18, Creatinine 1.03, Estimat Glomerular Filtration Rate 71, BUN/Creatinine Ratio 17, Glucose Level 171, Calcium Level 9.5, Corrected Calcium 9.7, Total Bilirubin 0.4, Aspartate Amino Transf (AST/SGOT) 22, Alanine Aminotransferase (ALT/SGPT) 30, Alkaline Phosphatase 76, Troponin I < 0.028, Total Protein 6.6, Albumin 3.8 11/06/21 05:33: White Blood Count 8.4, Red Blood Count 4.86, Hemoglobin 13.9, Hematocrit 43, Mean Corpuscular Volume 89, Mean Corpuscular Hemoglobin 29, Mean Corpuscular Hemoglobin Concent 32, Red Cell Distribution Width 13.5, Platelet Count 190, Mean Platelet Volume 11.0, Immature Granulocyte % (Auto) 1, Neutrophils (%) (Auto) 64, Lymphocytes (%) (Auto) 23, Monocytes (%) (Auto) 9, Eosinophils (%) (Auto) 3, Basophils (%) (Auto) 1, Neutrophils # (Auto) 5.4, Lymphocytes # (Auto) 1.9, Monocytes # (Auto) 0.8, Eosinophils # (Auto) 0.3, Basophils # (Auto) 0.1, Immature Granulocyte # (Auto) 0.1, Troponin I < 0.028, Triglycerides Level 148, Cholesterol Level 134, LDL Cholesterol Direct 80, VLDL Cholesterol 30, HDL Cholesterol 35 11/06/21 06:31: Glucometer 95 11/06/21 10:00: Glucometer 83 11/06/21 11:05: Troponin I < 0.028 Discharge Home Medications: Active Scripts Active Coreg (Carvedilol) 6.25 Mg Tablet 6.25 Mg PO BID Carafate (Sucralfate) 1 Gm Tablet 1 Gm PO ACHS Protonix (Pantoprazole Sodium) 40 Mg Tablet.dr 40 Mg PO BID Reported Levemir Flextouch (Insulin Detemir) 100 Unit/1 Ml Insuln.pen 112 Unit SQ HS Novolog Flexpen (Insulin Aspart) 300 Units/3 Ml Solution 0 SQ AC per slinding scale - 1unit for every 10 carbs Aspirin EC (Aspirin) 81 Mg Tablet.dr 81 Mg PO HS Lipitor (Atorvastatin Calcium) 20 Mg Tablet 20 Mg PO HS Prazosin HCl 1 Mg Capsule 1 Mg PO HS Hydrochlorothiazide 25 Mg Tablet 25 Mg PO DAILY Metformin HCl ER (Metformin HCl) 1,000 Mg [id number] 1,000 Mg PO DAILY Lisinopril 40 Mg Tablet 40 Mg PO DAILY Instructions to patient/family Please see electronic discharge instructions given to patient. Clinical Quality Measures AMI/AHF: ASA po Prior to arrival: MIN Dennis DO Nov 06, 2021 12:57
[2021-11-06 14:54] VITALS: BP 173/87
--- NOTE | 2021-11-06 15:48 | CONSULTATION REPORT ---
DATE OF SERVICE: ATTENDING PRIMARY CARE PHYSICIAN: Dr. Darline Wolfe. HISTORY OF PRESENT ILLNESS: The patient is a 71-year-old male who presented to the Emergency Department with chest pressure over the past 2 to 3 days. He states that he has had intermittent episodes of similar symptoms before in the past as well. He does have some risk factors for coronary artery disease as well as peripheral vascular disease. He also does have some increased belching and reflux type of symptoms and has been taking odnw-nne-faudiaw Tums for this. He was admitted and cardiology was consulted and no cardiac etiology was identified; however, again he continues to have reflux type of symptoms. The primary doctor did start him on Protonix 40 mg on a b.i.d. basis as well as Carafate as well as the necessary lifestyle and dietary combination. He is also scheduled for an outpatient ultrasound of the gallbladder and if this is negative, we will proceed with scheduling him for an EGD. PAST MEDICAL HISTORY: Hypertension, hypercholesterolemia, diabetes. ALLERGIES: BACTRIM. MEDICATIONS: Aspirin 81 mg daily, atorvastatin 20 mg daily, carvedilol 6.25 mg daily, hydrochlorothiazide 25 mg daily, aspartate insulin q.a.c., detemir insulin 112 units each day at bedtime. Lisinopril 40 mg daily. Metformin 1000 mg daily, Protonix 40 mg b.i.d., prazosin 1 mg daily, Carafate 1 gram q.i.d. for the next 2 weeks. SOCIAL HISTORY: Negative smoke, negative alcohol. FAMILY HISTORY: Noncontributory. VITAL SIGNS: Temperature 35.6, blood pressure 173/87, pulse 67, respirations 19, pulse ox 96% on room air. REVIEW OF SYSTEMS: Well-nourished male currently in no acute distress. He is not experiencing any shortness of breath or difficulty breathing. No chest pain, palpitations, diaphoresis. However, he does have epigastric burning sensation on an intermittent basis, which is not new. He has been taking [id number] medications for this; however, has had little relief from it. He does not report any iris episodes of nausea, no vomiting as well as no diarrhea or constipation. No fever, chills, no recent inadvertent weight loss. All other review of systems negative. PHYSICAL EXAMINATION: CHEST: A few scattered rales bilaterally. HEART: Regular, no murmurs. EXTREMITIES: No lower extremity edema, negative Homans sign. HEENT: No scleral icterus. NECK: No cervical lymphadenopathy. ABDOMEN: Soft, nondistended with mild discomfort in epigastric region upon deep palpation. No peritoneal signs. No hernias. SKIN: Warm, dry. LABORATORY DATA: WBC 8.4, hemoglobin 13.9, hematocrit 43, platelets 190. BUN 18, creatinine 1.03. Liver function enzymes normal. ASSESSMENT AND PLAN: A 71-year-old male with noncardiac chest pain and signs and symptoms of gastroesophageal reflux disease and he was started on medical therapy with Protonix b.i.d. as well as Carafate; however, due to these ongoing symptoms and for definitive diagnosis, we will schedule him for an EGD as well as biopsies as appropriate as an outpatient. Job ID: [id number] DocumentID: [id number] Dictated Date: 11/06/2021 15:34:17 Assembler Flexible Leads Date: 11/06/2021 15:47:49 Dictated By: PADDY DAO MD MTDD
[2021-11-06] MEDS ORDERED: PRAZOSIN 1 MG CAPSULE (MINIPRESS) NON-FORMULARY PO SCH (21:00)
== END 2021-11-06 14:30 | disposition home or self-care (01) ==
LOC: EDUNIT# 15:18 → ER 15:19 → 4TH 17:24
PROVIDERS: ADMIT Internal Medicine; ATTEND Internal Medicine
DX: R07.9 Chest pain, unspecified (principal); R14.2 Eructation; E11.9 Type 2 diabetes mellitus without complications; R00.1 Bradycardia, unspecified; I10 Essential (primary) hypertension; E78.5 Hyperlipidemia, unspecified; E66.9 Obesity, unspecified; F41.9 Anxiety disorder, unspecified; Z79.4 Long term (current) use of insulin; Z79.899 Other long term (current) drug therapy; Z68.33 Body mass index [BMI] 33.0-33.9, adult
CPT/HCPCS: 36415; 71045; 80053; 80061; 82550; 82553; 82947; 84484; 85025; 85027; 85610; 85730; 93005; 93306; G0378

== ENCOUNTER → 2021-11-12 | Outpatient (CLI) | payer MEDICARE, OTHER ==
[~2021-11-12] MED LIST: ASPI-1238 PO; ATOR20TA49 PO; CARV25TA PO; CARV6.25 PO; HYDR25TA4 PO; INSU100I14 SQ; INSU100I29 SQ; LISI40TA9 PO; METF-846 PO; OMEP20CA18 PO; PANT40TA2 PO; PRAZ1CAP2 PO; SUCR1TAB36 PO
--- NOTE | 2021-11-12 08:41 | Diagnostic Imaging Report ---
PROCEDURE: US Abdomen, limited. TECHNIQUE: Multiple realtime grayscale images were obtained over the abdomen in various projections. INDICATION: Gallbladder disease. Abdominal pain. COMPARISON: None available. FINDINGS: Liver: Normal in size and echotexture. No focal lesion is seen. There is appropriate hepatopetal flow in the main portal vein. Gallbladder: Normal. No stones or gallbladder wall thickening. No pericholecystic fluid. Negative sonographic Ortiz's sign. Biliary Tree: No intrahepatic or extrahepatic bile duct dilation is identified. The proximal common duct measures 0.4 cm in diameter. Pancreas: No abnormality in the visualized portions of the pancreas. Right kidney: Normal parenchymal echotexture and thickness. No hydronephrosis, stone or mass. Right renal length is 12.2 cm. Incidental note is made of a simple benign-appearing cyst in the lower pole measuring up to 1.8 cm. Other: The visualized aorta and IVC are normal in caliber and contour. No abdominal free fluid is identified. IMPRESSION: Abdominal ultrasound is within normal limits. There is no evidence of cholelithiasis or sonographic findings to suggest acute cholecystitis. Incidental note is made of a right renal cyst. Dictated by: Dictated on workstation # [id number]
== END ==
LOC: RAD 07:05
PROVIDERS: ATTEND Internal Medicine
DX: K82.9 Disease of gallbladder, unspecified (principal)
CPT/HCPCS: 76705

== ENCOUNTER 2021-11-16 05:30 | Outpatient (RCR) | payer MEDICARE, OTHER ==
[~2021-11-16] VITALS: Ht 182.8 cm; Wt 108.8 kg
== END 2021-11-16 08:53 | disposition home or self-care (01) ==
LOC: PREOP 05:30
PROVIDERS: ATTEND Surgery
DX: Z01.812 Encounter for preprocedural laboratory examination (principal); K21.9 Gastro-esophageal reflux disease without esophagitis; Z20.822 Contact with and (suspected) exposure to COVID-19
CPT/HCPCS: 87635

== ENCOUNTER 2021-11-17 09:45 | Day surgery (SDC) | payer MEDICARE, OTHER ==
[~2021-11-17] VITALS: Ht 182 cm; Wt 108.0 kg
[2021-11-17] MEDS ORDERED: LACTATED RINGERS 1,000 ML IV STA (09:46)
[2021-11-17] MEDS ORDERED: LACTATED RINGERS 1,000 ML IV ONE (09:48)
[2021-11-17] MEDS ORDERED: LIDOCAINE JELLY 2% 6 ML SYRINGE MM PRN (10:00)
[2021-11-17] MEDS ORDERED: HURRICAINE EXT TUBE (BENZOCAINE) XX PRN (10:00)
[2021-11-17] MEDS ORDERED: ONDANSETRON 4 MG/2 ML (SDV) Z0FRAN IVP PRN (10:00)
[2021-11-17] MEDS ORDERED: ONDANSETRON 4 MG (ZOFRAN) ORAL DISSOLVE TAB PO PRN (10:00)
--- NOTE | 2021-11-17 10:00 | Progress Note-Pre Operative ---
Pre-Operative Progress Note H&P Reviewed The H&P was reviewed, patient examined and no changes noted. Date Seen by Provider: Nov 17, 2021 Time Seen by Provider: 10:00 Date H&P Reviewed: Nov 17, 2021 Time H&P Reviewed: 10:00 Pre-Operative Diagnosis: GERD, chest pain PADDY DAO MD Nov 17, 2021 10:00
--- NOTE | 2021-11-17 10:01 | Discharge Inst-Surgical ---
D/C Lap Instructions-MAGDALENAO Follow Up Activity as tolerated High Fiber Diet 25g or more per day Avoid Alcohol, Caffeine, Spicy [place] and Acid foods. Drink 64 fluid oz or more of fluids per day. Symptoms to Report: Fever over 101 degree F, Nausea/Vomiting If any problems/questions: Contact your physician or go to Emergency Room PADDY DAO MD Nov 17, 2021 10:01
[2021-11-17 10:05] VITALS: BP 166/83
[2021-11-17] MEDS ORDERED: PROPOFOL INJECTION 50 ML IV ONE (10:32)
[2021-11-17 11:05] VITALS: BP 175/81
[2021-11-17 11:10] VITALS: BP 158/84
--- NOTE | 2021-11-17 11:16 | Anesthesia-General Post-Op ---
MAC Patient Condition Mental Status/LOC: Same as Preop Cardiovascular: Satisfactory Nausea/Vomiting: Absent Respiratory: Satisfactory Pain: Controlled Complications: Absent Post Op Complications Complications None Follow Up Care/Instructions Patient Instructions None needed. Anesthesiology Discharge Order Discharge Order Patient is doing well, no complaints, stable vital signs, no apparent adverse anesthesia problems. No complications reported per nursing. FREDY DRAKE CRNA Nov 17, 2021 11:16
--- NOTE | 2021-11-17 11:32 | Progress Note-Post Operative ---
Post-Operative Progess Note Surgeon (s)/Numerical Control Nesting Operator (s) Surgeon PADDY DAO MD Numerical Control Nesting Operator: none Pre-Operative Diagnosis GERD, chest pain Post-Operative Diagnosis reflux esophagitis(grade 3), small-moderate HH(2.5cm), moderate gastritis. Procedure & Operative Findings Date of Procedure 11/17/21 Procedure Performed/Findings EGD with bx. Anesthesia Type mac Estimated Blood Loss Estimated blood loss (mL): minimal Specimens/Packing Specimens Removed ge jxn, antrum PADDY DAO MD Nov 17, 2021 11:32
[2021-11-17 11:38] VITALS: BP 158/84
--- NOTE | 2021-11-17 17:38 | OPERATIVE REPORT ---
DATE OF SERVICE: 11/17/2021 ATTENDING PRIMARY CARE PHYSICIAN: Dr. Darline Wolfe. PREOPERATIVE DIAGNOSES: Chest pain and gastroesophageal reflux disease. POSTOPERATIVE DIAGNOSES: Reflux esophagitis, [place] grade C, small to moderate size hiatal hernia approximately 2.5 cm in size, moderate severity gastritis, and no formal ulcerations. PROCEDURES PERFORMED: EGD with biopsy. SURGEON: Paddy Dao MD. ANESTHESIA: Monitored anesthesia care. ESTIMATED BLOOD LOSS: Minimal. FINDINGS: Reflux esophagitis, [place] grade C, small to moderate size hiatal hernia approximately 2.5 cm in size, moderate severity gastritis, and no formal ulcerations. DISPOSITION: The patient tolerated the procedure well. INDICATIONS FOR PROCEDURE: The patient is a 79-year-old male known to us. He, initially, presented to the Emergency Department approximately a week and half ago with two to three-day history of chest pain. He does have some risk factors for coronary artery disease as well as peripheral vascular disease including hypertension and hypercholesterolemia as well as diabetes. He was admitted and did undergo a cardiac workup; however, no cardiac etiology was identified. He was started on Protonix as well as Carafate and did slightly improve and was discharged home. He also underwent an outpatient ultrasound of the gallbladder, which did not show any gallstones. DESCRIPTION OF PROCEDURE: The patient was brought to the endoscopy suite and laid in the left lateral decubitus position. After adequate IV pain and sedative medications and monitored anesthesia care, the mouthpiece was applied. The endoscope was placed in the mouth, visualizing the pharynx and the hypopharyngeal region. Vocal cords, epiglottis and vallecula identified and appeared to be normal. The endoscope was then gently intubated, the esophageal opening and esophagus insufflated. The endoscope was then advanced through the first, second and third portion of the esophagus. The GE junction was intrathoracic consistent with a hiatal hernia. There was also [place] grade C reflux esophagitis, biopsies were taken using forceps with visualization of good hemostasis. The endoscope was then advanced into the stomach and endoscope retroflexed, visualizing a type 3 hiatal hernia, which was small to moderate in size, approximately 2.5 cm in size. There was a moderate severity gastritis. No formal ulcerations, polyps or any neoplasms. A biopsy was taken of the antrum to rule out H. pylori with visualization of good hemostasis. The endoscope was then advanced to the pylorus and first and second portion of the duodenum, which appeared normal with no distal obstructions or any ulcerations. The endoscope was then slowly withdrawn while taking a second look and suctioning of residual air with no additional findings. The patient tolerated the procedure well. We will recommend the necessary lifestyle and dietary accommodation including small and more frequent meals, avoidance of eating at night as well as head elevation while lying supine. He also needs to avoid caffeinated beverages, spicy, greasy, and acidic foods. We will also have him continue with his Protonix 40 mg on a daily basis. Job ID: [id number] DocumentID: [id number] Dictated Date: 11/17/2021 11:09:42 Hearing Therapy Teacher Date: 11/17/2021 17:37:57 Dictated By: PADDY DAO MD
== END 2021-11-17 11:40 | disposition home or self-care (01) ==
LOC: ENDO 09:45
PROVIDERS: ATTEND Surgery
DX: K21.00 Gastro-esophageal reflux disease with esophagitis, without bleeding (principal); K44.9 Diaphragmatic hernia without obstruction or gangrene; K29.50 Unspecified chronic gastritis without bleeding; I10 Essential (primary) hypertension; E78.00 Pure hypercholesterolemia, unspecified; E11.9 Type 2 diabetes mellitus without complications; G47.33 Obstructive sleep apnea (adult) (pediatric); Z79.82 Long term (current) use of aspirin; Z79.899 Other long term (current) drug therapy; Z79.4 Long term (current) use of insulin; Z79.84 Long term (current) use of oral hypoglycemic drugs
CPT/HCPCS: 88305; 88342

== ENCOUNTER → 2021-11-24 | Outpatient (CLI) | payer MEDICARE, OTHER ==
[~2021-11-24] VITALS: Ht 182 cm; Wt 113.0 kg
[2021-11-24] MEDS: CATHETER FLUSH 10 ML SYR IV PRN (11:14)
[2021-11-24 13:10] VITALS: BP 153/83
--- NOTE | 2021-11-24 15:50 | Cardiology Stress Test Report ---
Stress Test Report Date of Procedure/Referring: Date of Procedure: Nov 24, 2021 PCP Tiara Dickson MD Admitting Physician Darline Wolfe DO Indications: HTN Baseline Heart Rate: 49 Baseline Blood Pressure: Blood Pressure Systolic: 153 Blood Pressure Diastolic: 83 Vital Signs Date Time Temp Pulse Resp B/P (MAP) Pulse Ox O2 Delivery O2 Flow Rate FiO2 11/24/21 13:10 62 153/83 (106) 98 Room Air Baseline Vital Signs Vital Signs Date Time Temp Pulse Resp B/P (MAP) Pulse Ox O2 Delivery O2 Flow Rate FiO2 11/24/21 13:10 62 153/83 (106) 98 Room Air Baseline EKG: Baseline EKG: NSR Summary: After explaining the procedure and details to the patient, he signed the consent and was brought to the stress nuclear laboratory. Patient exercised on standard [place] protocol, EKG, heart rate and blood pressure were monitored continuously, resting and stress doses of radio tracer were injected, imaging was acquired and reviewed in the short axis, horizontal long axis and vertical long axis views Patient was able to exercise for a total of 5 minutes on [place] protocol, METs 7 Maximum heart rate 140 Maximum blood pressure 240/96 Stress EKG, Minimal nondiagnostic changes Recovery EKG, Return to baseline TID: 0.91 SSS: 1 SDS: 1 EF: 50 Conclusion: 1. Fair exercise tolerance for a total of 5 minutes on standard [place] protocol, 7 METS achieving maximum heart rate of 140. 2. Minimal nondiagnostic EKG changes with exercise return to baseline during recovery 3. Occasional PVCs and ventricular couplets noted at peak stress level resolved during recovery 4. Diaphragmatic attenuation with typical male pattern with no significant ischemia or infarction on SPECT images 5. Normal left ventricular size, EF 50% TIARA DICKSON MD Nov 24, 2021 15:50
== END ==
LOC: CARD 11:45
PROVIDERS: ATTEND Internal Medicine Cardiovascular Disease
DX: I10 Essential (primary) hypertension (principal)
CPT/HCPCS: 78452; 93017; A9502

== ENCOUNTER 2022-07-06 09:54 | Outpatient (CLI) | payer MEDICARE, OTHER | END 2022-07-06 10:15 | LOC: SLEEP 09:54 | PROVIDERS: ATTEND Nurse Practitioner | DX: G47.33 Obstructive sleep apnea (adult) (pediatric) (principal); R94.31 Abnormal electrocardiogram [ECG] [EKG] | CPT/HCPCS: G0399 ==